=== PATIENT | male | born 1970 | race Caucasian/White ===

== ENCOUNTER 2024-09-12 06:11 | Day surgery (SDC) | payer OTHER, SELFPAY | END 2024-09-12 09:16 | disposition home or self-care (01) | LOC: GI 06:11 | PROVIDERS: ATTENDING PHYSICIAN Internal Medicine | DX: Z12.11 Encounter for screening for malignant neoplasm of colon (principal); D12.3 Benign neoplasm of transverse colon; D12.4 Benign neoplasm of descending colon; K64.8 Other hemorrhoids | CPT/HCPCS: 45385; 45380; 88305 ==